=== PATIENT | female | born 2000 | race Caucasian/White ===

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

== ENCOUNTER 2021-02-11 19:00 | Emergency (ER) | payer BC ==
[~2021-02-11] VITALS: Ht 160 cm; Wt 104.3 kg
[2021-02-11 19:42] LABS: HEMOGLOBIN 10.1 gm/dl (12.3-15.3); RED BLOOD COUNT 4.68 M/UL (4.00-5.10)
[2021-02-11 19:55] LABS: BUN/CREATININE RATIO 12 (0-10)
[2021-02-11] MEDS ORDERED: ONDANSETRON ODT4 MG SL (22:29)
[2021-02-11] MEDS ORDERED: PROAIR HFA8.5 GM INH (22:29)
[2021-02-11] MEDS ORDERED: CEFDINIR300 MG PO (22:29)
[2021-02-11] MEDS ORDERED: IBUPROFEN800 MG PO (22:29)
[2021-02-11] MEDS ORDERED: PYRIDIUM200 MG PO (22:29)
== END 2021-02-12 00:50 | disposition home or self-care (01) ==
LOC: ER1 19:00
PROVIDERS: Physician Assistant
DX: U07.1 COVID-19 (principal); J12.82 Pneumonia due to coronavirus disease 2019; N12 Tubulo-interstitial nephritis, not specified as acute or chronic; E03.9 Hypothyroidism, unspecified; Z23 Encounter for immunization
CPT/HCPCS: 80053; 81001; 83690; 85025; 87077; 87086; 87186; 96365; 99284; J0696; M0243; Q9967; U0002

== ENCOUNTER 2021-02-15 13:07 | Emergency (ER) | payer BC ==
[~2021-02-15] VITALS: Ht 160 cm; Wt 90.7 kg
[~2021-02-15 13:07] MED LIST: CEFDINIR300 MG PO; IBUPROFEN800 MG PO; ONDANSETRON ODT4 MG SL; PROAIR HFA8.5 GM INH; PYRIDIUM200 MG PO
[2021-02-15 14:00] LABS: RED BLOOD COUNT 4.14 M/UL (4.00-5.10); WHITE BLOOD COUNT 10.3 K/UL (4.5-11.0)
[2021-02-15 14:18] LABS: BUN/CREATININE RATIO 9 (0-10)
== END 2021-02-15 18:03 | disposition home or self-care (01) ==
LOC: ER1 13:07
PROVIDERS: Physician Assistant
DX: Z23 Encounter for immunization (principal); U07.1 COVID-19; N30.90 Cystitis, unspecified without hematuria
CPT/HCPCS: 36600; 71045; 80053; 82803; 83605; 83735; 84100; 85025; 86140; 87040; 99285; M0243